=== PATIENT | female | born 1970 | race Caucasian/White ===

== ENCOUNTER → 2016-08-07 | Outpatient (CLI) | payer BC | END | disposition home or self-care (01) | LOC: RAD.S 08-06 07:40 | DX: Z12.31 Encounter for screening mammogram for malignant neoplasm of breast (principal) ==

== ENCOUNTER 2016-08-22 08:23 | Emergency (ER) | payer BC ==
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
== END 2016-08-22 09:15 | disposition home or self-care (01) ==
LOC: ER 08:23
DX: S80.02XA Contusion of left knee, initial encounter (principal); G43.909 Migraine, unspecified, not intractable, without status migrainosus; Z90.49 Acquired absence of other specified parts of digestive tract; Z88.0 Allergy status to penicillin; V49.40XA Driver injured in collision with unspecified motor vehicles in traffic accident, initial encounter

== ENCOUNTER 2016-09-07 17:25 | Emergency (ER) | payer BC ==
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
== END 2016-09-07 19:49 | disposition home or self-care (01) ==
LOC: ER 17:25
DX: R60.0 Localized edema (principal); G43.909 Migraine, unspecified, not intractable, without status migrainosus; Z88.0 Allergy status to penicillin